=== PATIENT | male | born 1995 | race Caucasian/White ===

== ENCOUNTER 2016-10-27 11:42 | Emergency (ER) | payer MEDICAID ==
[~2016-10-27] VITALS: Ht 172.7 cm; Wt 70.3 kg
--- NOTE | ~2016-10-27 | US115 ---
[facility] A Service [facility] RADIOLOGY TEXT RESULTS PATIENT: CHAR HOOD LOCATION: SED : 93 UNIT #: [id number] AGE: [address]: Felton Jenkins MD SEX: M ORDER DR: [id number] [address] [address] [id number] MR#: [id number] Acc #: [id number] NAME: CHAR HOOD : 1995 SEX: M STUDY DATE/TIME: 10/27/2016 13:19 UNIT: SED ROOM: STUDY DESCRIPTION: US Scrotum and Contents Attending Physician: Felton Jenkins M.D. Ordering Physician: Felton Jenkins M.D. Primary Care Physician: Primary Care Physician No MEDICAL IMAGING REPORT This report is preliminary unless electronic signature is present. EXAM Scrotal ultrasound with Doppler imaging. INDICTIONS Patient has pain, swelling testicles 4 to 5 days. FINDINGS Scrotal contents were evaluated with doan-scale imaging, color Doppler. The right testicle is 2.0 x 3.2 x 4.4 cm and it has normal echotexture and normal flow. The epididymis appears normal. Inferior to the right testicle there is a somewhat prominent plexus of dhaval structures. None are large enough to be accurately classified as a varicocele. The left testicle measures 2.0 x 2.8 x 4.1 cm and also has normal echotexture and normal flow. There is minimal fluid around the testicle and the epididymis appears normal. IMPRESSION 1. Both testicle appear normal. 2. There is about a 2 x 2 cm area of prominent veins inferior to the right testicle. None of them individually measure large enough to be called a varicocele but this could be the area of the cause of the patient's pain. 3. There is no evidence of epididymitis. 4. Minimal fluid is noted around the left testicle. Dictated by... Sam Rogel M.D. THIS IS AN ELECTRONICALLY VERIFIED REPORT [facility] A Service of [facility] RADIOLOGY TEXT RESULTS PATIENT: CHAR HOOD LOCATION: SED : 93 UNIT #: [id number] AGE: [address]: Felton Jenkins MD SEX: M ORDER DR: Sam Rogel M.D. at 10/28/2016 8:05 AM MARJAN/emilia TD: 10/28/2016 07:27 JOB #: [id number] MEDICAL IMAGING REPORT Page 1 of 1
[~2016-10-27 11:42] MED LIST: AMOXICILLIN875 MG PO; CILOXAN 0.3% O2.5 M1
[2016-10-27 13:22] LABS: URINE APPEARANCE SL CLOUDY; URINE BILIRUBIN NEG (NEG); URINE BLOOD 1+ (NEG); URINE COLOR YELLOW; URINE GLUCOSE NEG (NORM); URINE KETONE NEG (NEG); URINE LEUKOCYTE ESTERASE 1+ (NEG); URINE NITRATE NEG (NEG); URINE PROTEIN TRACE (NEG); URINE SOURCE CLEAN CATCH; URINE UROBILINOGEN 0.2 MG/DL (NORM)
[2016-10-27 13:35] LABS: MICRO INDICATED? YES
[2016-10-27 13:50] LABS: CULTURE INDICATED? YES; URINE AMORPHOUS SEDIMENT AMORP URATES; URINE BACTERIA 1+ (NEG); URINE SQUAMOUS EPITHELIAL CELL FEW /[HPF]
[2016-10-28 23:47] LABS: CHLAMYDIA TRACH Detected (Not Detected); N GONOR Not Detected (Not Detected)
[2016-10-30] MEDS ORDERED: ZITHROMAX PO (19:10)
== END 2016-10-27 14:42 | disposition home or self-care (01) ==
LOC: SED 11:42
PROVIDERS: Emergency Medicine
DX: N30.01 Acute cystitis with hematuria (principal); I86.1 Scrotal varices; F17.210 Nicotine dependence, cigarettes, uncomplicated
CPT/HCPCS: 76870; 81003; 87086; 87491; 87591; 99284